=== PATIENT | female | born 1950 | race Caucasian/White ===

== ENCOUNTER → 2017-03-21 | Outpatient (CLI) | payer MEDICARE | END | disposition home or self-care (01) | LOC: CFH 15:45 | PROVIDERS: ATTEND Nurse Practitioner Primary Care | DX: M19.042 Primary osteoarthritis, left hand (principal); M50.323 Other cervical disc degeneration at C6-C7 level; R53.83 Other fatigue; E55.9 Vitamin D deficiency, unspecified; E78.2 Mixed hyperlipidemia; R79.9 Abnormal finding of blood chemistry, unspecified; K21.9 Gastro-esophageal reflux disease without esophagitis; J44.9 Chronic obstructive pulmonary disease, unspecified; I10 Essential (primary) hypertension; R93.8 Abnormal findings on diagnostic imaging of other specified body structures; R20.2 Paresthesia of skin; G89.29 Other chronic pain; E03.9 Hypothyroidism, unspecified; Z72.0 Tobacco use; Z79.899 Other long term (current) drug therapy | CPT/HCPCS: 72040 ==

== ENCOUNTER → 2017-03-30 | Outpatient (CLI) | payer MEDICARE | END | disposition home or self-care (01) | LOC: CFH 07:51 | PROVIDERS: ATTEND Nurse Practitioner Primary Care | DX: M48.02 Spinal stenosis, cervical region (principal); E03.9 Hypothyroidism, unspecified; E55.9 Vitamin D deficiency, unspecified; E78.2 Mixed hyperlipidemia; R53.83 Other fatigue; K21.9 Gastro-esophageal reflux disease without esophagitis; J44.9 Chronic obstructive pulmonary disease, unspecified; I10 Essential (primary) hypertension; R93.8 Abnormal findings on diagnostic imaging of other specified body structures; G89.29 Other chronic pain; M79.642 Pain in left hand; R79.9 Abnormal finding of blood chemistry, unspecified; Z79.899 Other long term (current) drug therapy; Z72.0 Tobacco use | CPT/HCPCS: 72141 ==

== ENCOUNTER → 2017-04-19 | Outpatient (CLI) | payer MEDICARE | END | disposition home or self-care (01) | LOC: CFH 15:35 | PROVIDERS: ATTEND Nurse Practitioner Primary Care | DX: I65.23 Occlusion and stenosis of bilateral carotid arteries (principal); E03.9 Hypothyroidism, unspecified; E04.1 Nontoxic single thyroid nodule; E55.9 Vitamin D deficiency, unspecified; E78.2 Mixed hyperlipidemia; R53.83 Other fatigue; K21.9 Gastro-esophageal reflux disease without esophagitis; J44.9 Chronic obstructive pulmonary disease, unspecified; I10 Essential (primary) hypertension; R93.8 Abnormal findings on diagnostic imaging of other specified body structures; R20.2 Paresthesia of skin; G89.29 Other chronic pain; M79.642 Pain in left hand; M06.9 Rheumatoid arthritis, unspecified; R79.9 Abnormal finding of blood chemistry, unspecified; Z79.899 Other long term (current) drug therapy; Z72.0 Tobacco use | CPT/HCPCS: 76536; 93880 ==

== ENCOUNTER → 2017-05-22 | Outpatient (CLI) | payer MEDICARE ==
[~2017-05-22] MED LIST: GADOBUTROL 7.5 MMOL/7.5 ML PFS ONE
== END | disposition home or self-care (01) ==
LOC: CFH 08:11
PROVIDERS: ATTEND Nurse Practitioner Primary Care
DX: G31.89 Other specified degenerative diseases of nervous system (principal); M62.81 Muscle weakness (generalized); E03.9 Hypothyroidism, unspecified; E55.9 Vitamin D deficiency, unspecified; R53.83 Other fatigue; R79.9 Abnormal finding of blood chemistry, unspecified; K21.9 Gastro-esophageal reflux disease without esophagitis; J44.9 Chronic obstructive pulmonary disease, unspecified; I10 Essential (primary) hypertension; R93.8 Abnormal findings on diagnostic imaging of other specified body structures; R20.2 Paresthesia of skin; G89.29 Other chronic pain; M06.9 Rheumatoid arthritis, unspecified; M79.642 Pain in left hand; I65.29 Occlusion and stenosis of unspecified carotid artery; Z72.0 Tobacco use; Z79.899 Other long term (current) drug therapy
CPT/HCPCS: 70553; 82565; A9585

== ENCOUNTER 2018-11-09 12:56 | Outpatient (CLI) | payer MEDICARE ==
[~2018-11-09 12:56] MED LIST changes: +AMIO200T42 PO; +APIX5TAB PO; +CARB200T PO; +CARV6.2512 PO; +CEFA2PIG7 IVPB; +FOLI0.8T2 PO; -GADOBUTROL 7.5 MMOL/7.5 ML PFS ONE; +HYDR200T72 PO; +METH2.5T PO; +MONT10TA9 PO; +OXYC5TAB3 PO; +PRED10TA PO
== END 2018-11-09 23:59 | disposition home or self-care (01) ==
LOC: CFH 12:56
PROVIDERS: ATTEND Registered Nurse Registered Nurse First Assistant
DX: S22.000A Wedge compression fracture of unspecified thoracic vertebra, initial encounter for closed fracture (principal); M43.8X5 Other specified deforming dorsopathies, thoracolumbar region; X58.XXXA Exposure to other specified factors, initial encounter; Y93.89 Activity, other specified; Y92.89 Other specified places as the place of occurrence of the external cause; Y99.8 Other external cause status
CPT/HCPCS: 72146

== ENCOUNTER 2019-02-22 10:42 | Outpatient (CLI) | payer MEDICAID, MEDICARE | END 2019-02-22 23:59 | disposition home or self-care (01) | LOC: CFH 10:42 | PROVIDERS: ATTEND Internal Medicine Cardiovascular Disease | DX: I08.8 Other rheumatic multiple valve diseases (principal) | CPT/HCPCS: 78452; 93017; 93306; A9502 ==

== ENCOUNTER 2019-04-01 09:04 | Day surgery (SDC) | payer MEDICARE, MEDICAID ==
[~2019-04-01] VITALS: Ht 157.5 cm; Wt 54.5 kg
[~2019-04-01 09:04] MED LIST changes: +MONT10TA11 PO; -MONT10TA9 PO
[2019-04-01 09:22] VITALS: BP 175/96
[2019-04-01] MEDS ORDERED: SODIUM CHLORIDE 0.9% 1,000 ML IV ONE (09:30)
[2019-04-01] MEDS ORDERED: CYCL-259 PO (09:53)
[2019-04-01] MEDS ORDERED: LISI-170 PO (09:53)
[2019-04-01] MEDS ORDERED: LIOT5TAB11 PO (09:53)
[2019-04-01] MEDS ORDERED: ADAL1PEN SQ (09:53)
[2019-04-01] MEDS ORDERED: CARV25TA12 PO (09:53)
[2019-04-01] MEDS ORDERED: ROSU10TA2 PO (09:53)
[2019-04-01] MEDS ORDERED: CARB200T3 PO (09:53)
[2019-04-01] MEDS ORDERED: AMIO200T42 PO (09:53)
[2019-04-01] MEDS ORDERED: CELE100C PO (09:53)
[2019-04-01] MEDS ORDERED: FLUT1AER INH (09:53)
[2019-04-01] MEDS ORDERED: HYDR-3237 PO (09:54)
[2019-04-01] MEDS ORDERED: PLEASE ENTER HEIGHT AND WEIGHT MC SCH (10:00)
[2019-04-01] MEDS ORDERED: LEVO75TA PO (10:02)
[2019-04-01] MEDS ORDERED: PROPOFOL 10 MG/ML, 20ML ONE (10:22)
== END 2019-04-01 12:11 | disposition home or self-care (01) ==
LOC: CACL 09:04
PROVIDERS: ATTEND Internal Medicine Cardiovascular Disease
DX: I48.91 Unspecified atrial fibrillation (principal); I08.1 Rheumatic disorders of both mitral and tricuspid valves; I70.0 Atherosclerosis of aorta; I27.20 Pulmonary hypertension, unspecified; I10 Essential (primary) hypertension; E78.5 Hyperlipidemia, unspecified; G40.909 Epilepsy, unspecified, not intractable, without status epilepticus; E03.9 Hypothyroidism, unspecified; J44.9 Chronic obstructive pulmonary disease, unspecified; M06.9 Rheumatoid arthritis, unspecified; E66.3 Overweight; Z68.21 Body mass index [BMI] 21.0-21.9, adult; Z79.01 Long term (current) use of anticoagulants; Z79.890 Hormone replacement therapy; Z79.899 Other long term (current) drug therapy; Z87.891 Personal history of nicotine dependence; Z90.710 Acquired absence of both cervix and uterus; Z82.49 Family history of ischemic heart disease and other diseases of the circulatory system
CPT/HCPCS: 93312; 93325; J2704